=== PATIENT | male | born 1965 | race Caucasian/White ===

== ENCOUNTER → 2016-06-18 | Outpatient (CLI) | payer MEDICARE | LOC: LAB 15:03 | DX: R07.9 Chest pain, unspecified (principal); I10 Essential (primary) hypertension ==

== ENCOUNTER → 2016-09-17 | Outpatient (CLI) | payer MEDICARE | LOC: RAD 14:37 | DX: M79.662 Pain in left lower leg (principal); M79.661 Pain in right lower leg; I82.4Z3 Acute embolism and thrombosis of unspecified deep veins of distal lower extremity, bilateral ==

== ENCOUNTER → 2023-09-16 | Outpatient (CLI) | payer MEDICARE | LOC: RAD 11:55 | DX: M50.322 Other cervical disc degeneration at C5-C6 level (principal); M50.323 Other cervical disc degeneration at C6-C7 level ==

== ENCOUNTER → 2024-02-04 | Outpatient (CLI) | payer MEDICARE ==
[~2024-02-04] MED LIST: Gadoterate 20 ML VIAL IV ONE
== END ==
LOC: RAD 10:02
DX: M47.26 Other spondylosis with radiculopathy, lumbar region (principal); M51.16 Intervertebral disc disorders with radiculopathy, lumbar region; M48.061 Spinal stenosis, lumbar region without neurogenic claudication; M48.07 Spinal stenosis, lumbosacral region
CPT/HCPCS: A9575